=== PATIENT | male | born 1940 | race Caucasian/White ===

== ENCOUNTER 2016-04-22 18:42 | Observation (INO) | payer MEDICARE, SELFPAY ==
[2016-04-22 19:21] LABS: AUTOMATED EOSINOPHIL 1.1 % (0-5); AUTOMATED LYMPH 21.9 % (17-44); AUTOMATED MONOCYTE 6.8 % (3-10); AUTOMATED NEUTROPHIL 69.2 % (45-76); MPV 8.3 fL (7.4-10.4)
[2016-04-22 19:31] LABS: BLOOD UREA NITROGEN 15 MG/DL (9-20); CALCIUM 9.5 MG/DL (8.4-10.2); CALCULATED OSMOLALITY 263 MOs/Kg (270-290); CHLORIDE 98 mEq/L (98-107); GLUCOSE 91 MG/DL (70-99); SODIUM LEVEL 136 mEq/L (137-146)
[2016-04-22 19:40] LABS: PARTIAL THROMB. TIME 39.7 SEC (22-35); PT-INR 1.4
--- NOTE | 2016-04-22 23:12 | EDPRACDOC ---
<Bharat Bosch - Last Filed: 04/23/16 02:49> - General Information Mode of Arrival: Car - History of Present Illness Onset: 1500 HPI: C/o sub sternal chest pain starting at 3pm while sitting. pt got very shaky prior to chest pain, then passed out and woke up with his dog licking him. Denies fever, N/V/D, cough, sore throat, changes in BM. Also c/o intermittent hematuria. Stress test 12/2015 NEG for ischemia, EF 52%. Pt has hx COPD, HDL, of AFIB on diltiazem, amio, xarelto. No recent surgeries. Chest Pain Location: Reports: Substernal Pain Radiation: Reports: None Symptoms Occur: Reports: Suddenly, At Rest Cardiac Risk Factors: Reports: Smoker, Hyperlipidemia, Hypertension. Denies: Family History Cardiac History of: Reports: Stress Test (12/2015 NEG for ischemia, EF 52%) PE Risk Factors: Denies: Recent Trauma/Surgery, Estrogen Use, Control Pills, Immobilization Pain Came On: Reports: Suddenly Pain Status: Resolved Pain Description: Reports: Sharp Pain Severity: Moderate Pain Worsens With: Reports: Nothing Pain Improves With: Reports: Nothing Associated Signs and Symptoms: Reports: SOB <ElroyMarkoson - Last Filed: 04/23/16 04:16> - General Information Chief Complaint: Chest Pain Stated Complaint: SHAKING PASSSED OUT HEART ACTING UP Home Medications: Home Medications Amiodarone [Cordarone, Pacerone] 200 mg PO DAILY #40 tablet 12/31/15 Aspirin 325 mg PO DAILYWM #30 tablet 12/31/15 Oxycodone Immediate Release [Oxycodone Immediate Release (OxyIR)] 5 mg PO Q4H PRN #30 tablet 12/31/15 Cyclobenzaprine HCl [Flexeril] 10 mg PO TID 01/05/16 Naproxen [Naprosyn] 500 mg PO TID 01/05/16 Diltiazem HCl [Cardizem Cd] 180 mg PO DAILY #30 capsule.cr 01/06/16 Metoprolol Tartrate [Lopressor] 12.5 mg PO BID #60 tablet 01/06/16 Nicotine [Nicotine Patch] 21 mg TD DAILY #30 patch.dysq 01/06/16 Thiamine [Thiamine, Vitamin B-1] 100 mg PO DAILY@1200 #100 tablet 01/06/16 Allergies/Adverse Reactions: Allergies Allergy/AdvReac Type Severity Reaction Status Date / Time No Known Allergies Allergy Verified 04/22/16 18:58 ED Past Medical History - History Reviewed Yes Nurses notes reviewed and agree except as marked - Patient Medical History Neurological History: Denies: Cerebrovascular Accident, Dementia Cardiac History: Reports: Hypertension (Patient states he was previously treated ), Hypercholesterolemia (Patient states he was previously treated). Denies: Atrial Fibrillation, Congestive Heart Failure, Heart Attack, Cardiac Catheterization, CABG, Stress Test, Syncope Respiratory History: Reports: COPD. Denies: Asthma, Emphysema GI/ History: Reports: Kidney Stones. Denies: Gastroesophageal Reflux Psychological History: Reports: Anxiety. Denies: Depression, Substance Use Disorder Systemic History: Denies: Cancer, Anemia, Diabetes Surgical History: Reports: Other (PIN in the right tibia from fracture years ago ). Denies: CABG, Cardiac Catheterization - Family Medical History Reports: Hypertension, Diabetes (mom, sister, son), Cancer (sister breast, mom) . Denies: Stroke, Cardiac Disorders - Social Medical History Smoking Status: Heavy tobacco smoker (5 or more cigarettes/day or daily pipe/ cigar) Social History: Denies: Cocaine Use, Substance Use Disorder <Markos Abbasi - Last Filed: 04/23/16 04:16> EDM Review of Systems - Review of Systems ROS Negative Except as Marked: Yes All systems reviewed and were negative except as marked Respiratory: Shortness of Breath Cardiovascular: Chest Pain Genitourinary: Hematuria <Markos Abbasi - Last Filed: 04/23/16 04:16> - Physical Exam Last recorded Vital Signs: Last Vital Signs Temp 98 F 04/22/16 18:55 Pulse 72 04/22/16 23:14 Resp 20 04/22/16 18:55 BP 166/115 H 04/22/16 18:55 Pulse Ox 95 04/22/16 18:55 Oxygen Pulse Oxygen Saturation 95 O2 Device Oxygen Flow Rate Fraction of Inspired Oxygen ( FIO2) <Bharat Bosch - Last Filed: 04/23/16 02:49> - Physical Exam Constitutional: No apparent distress, Alert Oriented to: Time, Person, Place Last recorded Vital Signs: Last Vital Signs Temp 98 F 04/22/16 18:55 Pulse 66 04/22/16 18:55 Resp 20 04/22/16 18:55 BP 166/115 H 04/22/16 18:55 Pulse Ox 95 04/22/16 18:55 Oxygen Pulse Oxygen Saturation 95 O2 Device Oxygen Flow Rate Fraction of Inspired Oxygen ( FIO2) - HEENT Head: Normal Eye Exam: negative: Conjunctival Injection, Scleral Icterus Oropharynx: negative: Drooling TMJ: Normal Nose: No Symptoms Reported Neck: Normal - Respiratory/Cardiovascular Respiratory: Normal - CTA Cardiovascular: Normal - GI Tenderness: Non tender - Musculoskeletal Back: Normal Extremities: Normal - Integumentary Skin: Normal - Neurologic Mood Description: Normal Thought: Coherent Perception: Normal <Mrakos Abbasi - Last Filed: 04/23/16 04:16> ED Chest Pain Exam - Respiratory/Cardiovascular Respiratory: Normal - CTA Cardiovascular/Chest: Normal Radial Pulse: Normal Pedal Pulse: Normal Edema: negative: 1+, 2+, 3+, 4+, 5, 6 Chest Palpation: Normal <Markos Abbasi - Last Filed: 04/23/16 04:16> - Differential Diagnosis Other (SYNCOPE) - Action ASA given in the ED: Yes - Results 04/22/16 19:00 04/22/16 19:00 WBC 11.2 xk/uL (3.8-10.8) H 04/22/16 19:00 RBC 4.55 xM/uL (4.70-6.10) L 04/22/16 19:00 Hgb 15.1 g/dL (14.0-18.0) 04/22/16 19:00 Hct 44.8 % (42-52) 04/22/16 19:00 MCV 98 fL (80-94) H 04/22/16 19:00 MCH 33.2 pg (27-32) H 04/22/16 19:00 MCHC 33.7 g/dl (33-36) 04/22/16 19:00 RDW 13.3 % (11.5-14.5) 04/22/16 19:00 Plt Count 240 xk/uL (130-400) 04/22/16 19:00 MPV 8.3 fL (7.4-10.4) 04/22/16 19:00 Neut % (Auto) 69.2 % (45-76) 04/22/16 19:00 Lymph % (Auto) 21.9 % (17-44) 04/22/16 19:00 [place] % (Auto) 6.8 % (3-10) 04/22/16 19:00 Eos % (Auto) 1.1 % (0-5) 04/22/16 19:00 Baso % (Auto) 1.0 % (0-2) 04/22/16 19:00 Absolute Neuts (auto) 7.73 xk/uL (1.7-8.2) 04/22/16 19:00 Absolute Lymphs (auto) 2.35 xk/uL (0.65-4.75) 04/22/16 19:00 PT 14.3 SEC (9.2-11.2) H 04/22/16 19:00 INR 1.4 04/22/16 19:00 APTT 39.7 SEC (22-35) H 04/22/16 19:00 Sodium 136 mEq/L (137-146) L 04/22/16 19:00 Potassium 4.2 mEq/L (3.5-5.1) 04/22/16 19:00 Chloride 98 mEq/L (98-107) 04/22/16 19:00 Carbon Dioxide 24 mMOL/L (22-33) 04/22/16 19:00 Anion Gap 18 mEq/L (8-16) H 04/22/16 19:00 BUN 15 MG/DL (9-20) 04/22/16 19:00 Creatinine 1.10 MG/DL (0.66-1.25) 04/22/16 19:00 Estimated GFR (MDRD) > 60 mL/min (>=60) 04/22/16 19:00 Glucose 91 MG/DL (70-99) 04/22/16 19:00 Calculated Osmolality 263 MOs/Kg (270-290) L 04/22/16 19:00 Calcium 9.5 MG/DL (8.4-10.2) 04/22/16 19:00 Total Bilirubin 0.8 MG/DL (0.2-1.3) 04/22/16 19:00 AST 35 IU/L (17-59) 04/22/16 19:00 ALT 32 IU/L (21-72) 04/22/16 19:00 Alkaline Phosphatase 96 IU/L (50-160) 04/22/16 19:00 Troponin I 0.03 ng/mL (<.04) 04/22/16 21:45 Jix-U-Jznpvxovmin Pept 162 pg/mL (0-900) 04/22/16 19:00 Total Protein 8.0 G/DL (6.3-8.2) 04/22/16 19:00 Albumin 4.4 G/DL (3.5-5.0) 04/22/16 19:00 Lab Results 04/22/16 04/22/16 04/22/16 21:45 19:00 19:00 WBC 11.2 H RBC 4.55 L Hgb 15.1 Hct 44.8 MCV 98 H MCH 33.2 H MCHC 33.7 RDW 13.3 Plt Count 240 MPV 8.3 Neut % (Auto) 69.2 Lymph % (Auto) 21.9 [place] % (Auto) 6.8 Eos % (Auto) 1.1 Baso % (Auto) 1.0 Absolute Neuts (auto) 7.73 Absolute Lymphs (auto) 2.35 PT 14.3 H INR 1.4 APTT 39.7 H Sodium Potassium Chloride Carbon Dioxide Anion Gap BUN Creatinine Estimated GFR (MDRD) Glucose Calculated Osmolality Calcium Total Bilirubin AST ALT Alkaline Phosphatase Troponin I 0.03 Wvq-X-Vnrewyzujmo Pept Total Protein Albumin 04/22/16 19:00 WBC RBC Hgb Hct MCV MCH MCHC RDW Plt Count MPV Neut % (Auto) Lymph % (Auto) [place] % (Auto) Eos % (Auto) Baso % (Auto) Absolute Neuts (auto) Absolute Lymphs (auto) PT INR APTT Sodium 136 L Potassium 4.2 Chloride 98 Carbon Dioxide 24 Anion Gap 18 H BUN 15 Creatinine 1.10 Estimated GFR (MDRD) > 60 Glucose 91 Calculated Osmolality 263 L Calcium 9.5 Total Bilirubin 0.8 AST 35 ALT 32 Alkaline Phosphatase 96 Troponin I 0.02 Yqd-T-Xrebtjmymgv Pept 162 Total Protein 8.0 Albumin 4.4 Laboratory Results - last 24 hr 04/22/16 04/22/16 04/22/16 19:00 19:00 19:00 WBC 11.2 H RBC 4.55 L Hgb 15.1 Hct 44.8 MCV 98 H MCH 33.2 H MCHC 33.7 RDW 13.3 Plt Count 240 MPV 8.3 Neut % (Auto) 69.2 Lymph % (Auto) 21.9 [place] % (Auto) 6.8 Eos % (Auto) 1.1 Baso % (Auto) 1.0 Absolute Neuts (auto) 7.73 Absolute Lymphs (auto) 2.35 PT 14.3 H INR 1.4 APTT 39.7 H Sodium 136 L Potassium 4.2 Chloride 98 Carbon Dioxide 24 Anion Gap 18 H BUN 15 Creatinine 1.10 Estimated GFR (MDRD) > 60 Glucose 91 Calculated Osmolality 263 L Calcium 9.5 Total Bilirubin 0.8 AST 35 ALT 32 Alkaline Phosphatase 96 Troponin I 0.02 Hkr-U-Tlynefhakzp Pept 162 Total Protein 8.0 Albumin 4.4 04/22/16 21:45 WBC RBC Hgb Hct MCV MCH MCHC RDW Plt Count MPV Neut % (Auto) Lymph % (Auto) [place] % (Auto) Eos % (Auto) Baso % (Auto) Absolute Neuts (auto) Absolute Lymphs (auto) PT INR APTT Sodium Potassium Chloride Carbon Dioxide Anion Gap BUN Creatinine Estimated GFR (MDRD) Glucose Calculated Osmolality Calcium Total Bilirubin AST ALT Alkaline Phosphatase Troponin I 0.03 Ivi-C-Fzetwlgfqai Pept Total Protein Albumin Laboratory Results 04/22/16 19:00 04/22/16 19:00 <Bharat Bosch - Last Filed: 04/23/16 02:49> - Results 04/22/16 19:00 04/22/16 19:00 WBC 11.2 xk/uL (3.8-10.8) H 04/22/16 19:00 RBC 4.55 xM/uL (4.70-6.10) L 04/22/16 19:00 Hgb 15.1 g/dL (14.0-18.0) 04/22/16 19:00 Hct 44.8 % (42-52) 04/22/16 19:00 MCV 98 fL (80-94) H 04/22/16 19:00 MCH 33.2 pg (27-32) H 04/22/16 19:00 MCHC 33.7 g/dl (33-36) 04/22/16 19:00 RDW 13.3 % (11.5-14.5) 04/22/16 19:00 Plt Count 240 xk/uL (130-400) 04/22/16 19:00 MPV 8.3 fL (7.4-10.4) 04/22/16 19:00 Neut % (Auto) 69.2 % (45-76) 04/22/16 19:00 Lymph % (Auto) 21.9 % (17-44) 04/22/16 19:00 [place] % (Auto) 6.8 % (3-10) 04/22/16 19:00 Eos % (Auto) 1.1 % (0-5) 04/22/16 19:00 Baso % (Auto) 1.0 % (0-2) 04/22/16 19:00 Absolute Neuts (auto) 7.73 xk/uL (1.7-8.2) 04/22/16 19:00 Absolute Lymphs (auto) 2.35 xk/uL (0.65-4.75) 04/22/16 19:00 PT 14.3 SEC (9.2-11.2) H 04/22/16 19:00 INR 1.4 04/22/16 19:00 APTT 39.7 SEC (22-35) H 04/22/16 19:00 Sodium 136 mEq/L (137-146) L 04/22/16 19:00 Potassium 4.2 mEq/L (3.5-5.1) 04/22/16 19:00 Chloride 98 mEq/L (98-107) 04/22/16 19:00 Carbon Dioxide 24 mMOL/L (22-33) 04/22/16 19:00 Anion Gap 18 mEq/L (8-16) H 04/22/16 19:00 BUN 15 MG/DL (9-20) 04/22/16 19:00 Creatinine 1.10 MG/DL (0.66-1.25) 04/22/16 19:00 Estimated GFR (MDRD) > 60 mL/min (>=60) 04/22/16 19:00 Glucose 91 MG/DL (70-99) 04/22/16 19:00 Calculated Osmolality 263 MOs/Kg (270-290) L 04/22/16 19:00 Calcium 9.5 MG/DL (8.4-10.2) 04/22/16 19:00 Total Bilirubin 0.8 MG/DL (0.2-1.3) 01/13/17 19:00 AST 35 IU/L (17-59) 04/22/16 19:00 ALT 32 IU/L (21-72) 04/22/16 19:00 Alkaline Phosphatase 96 IU/L (50-160) 04/22/16 19:00 Troponin I 0.03 ng/mL (<.04) 04/22/16 21:45 Mro-R-Abvdxsojfre Pept 162 pg/mL (0-900) 04/22/16 19:00 Total Protein 8.0 G/DL (6.3-8.2) 04/22/16 19:00 Albumin 4.4 G/DL (3.5-5.0) 04/22/16 19:00 Lab Results 04/22/16 04/22/16 04/22/16 21:45 19:00 19:00 WBC 11.2 H RBC 4.55 L Hgb 15.1 Hct 44.8 MCV 98 H MCH 33.2 H MCHC 33.7 RDW 13.3 Plt Count 240 MPV 8.3 Neut % (Auto) 69.2 Lymph % (Auto) 21.9 [place] % (Auto) 6.8 Eos % (Auto) 1.1 Baso % (Auto) 1.0 Absolute Neuts (auto) 7.73 Absolute Lymphs (auto) 2.35 PT 14.3 H INR 1.4 APTT 39.7 H Sodium Potassium Chloride Carbon Dioxide Anion Gap BUN Creatinine Estimated GFR (MDRD) Glucose Calculated Osmolality Calcium Total Bilirubin AST ALT Alkaline Phosphatase Troponin I 0.03 Emx-A-Ajykyxxgmfj Pept Total Protein Albumin 04/22/16 19:00 WBC RBC Hgb Hct MCV MCH MCHC RDW Plt Count MPV Neut % (Auto) Lymph % (Auto) [place] % (Auto) Eos % (Auto) Baso % (Auto) Absolute Neuts (auto) Absolute Lymphs (auto) PT INR APTT Sodium 136 L Potassium 4.2 Chloride 98 Carbon Dioxide 24 Anion Gap 18 H BUN 15 Creatinine 1.10 Estimated GFR (MDRD) > 60 Glucose 91 Calculated Osmolality 263 L Calcium 9.5 Total Bilirubin 0.8 AST 35 ALT 32 Alkaline Phosphatase 96 Troponin I 0.02 Xyk-T-Lssjaenqoxw Pept 162 Total Protein 8.0 Albumin 4.4 Laboratory Results - last 24 hr 04/22/16 04/22/16 04/22/16 19:00 19:00 19:00 WBC 11.2 H RBC 4.55 L Hgb 15.1 Hct 44.8 MCV 98 H MCH 33.2 H MCHC 33.7 RDW 13.3 Plt Count 240 MPV 8.3 Neut % (Auto) 69.2 Lymph % (Auto) 21.9 [place] % (Auto) 6.8 Eos % (Auto) 1.1 Baso % (Auto) 1.0 Absolute Neuts (auto) 7.73 Absolute Lymphs (auto) 2.35 PT 14.3 H INR 1.4 APTT 39.7 H Sodium 136 L Potassium 4.2 Chloride 98 Carbon Dioxide 24 Anion Gap 18 H BUN 15 Creatinine 1.10 Estimated GFR (MDRD) > 60 Glucose 91 Calculated Osmolality 263 L Calcium 9.5 Total Bilirubin 0.8 AST 35 ALT 32 Alkaline Phosphatase 96 Troponin I 0.02 Pih-E-Gvgvlgoyucw Pept 162 Total Protein 8.0 Albumin 4.4 04/22/16 21:45 WBC RBC Hgb Hct MCV MCH MCHC RDW Plt Count MPV Neut % (Auto) Lymph % (Auto) [place] % (Auto) Eos % (Auto) Baso % (Auto) Absolute Neuts (auto) Absolute Lymphs (auto) PT INR APTT Sodium Potassium Chloride Carbon Dioxide Anion Gap BUN Creatinine Estimated GFR (MDRD) Glucose Calculated Osmolality Calcium Total Bilirubin AST ALT Alkaline Phosphatase Troponin I 0.03 Sfw-I-Cnbexilazzo Pept Total Protein Albumin Laboratory Results 04/22/16 19:00 04/22/16 19:00 - EKG EKG #1 EKG Time: 18:52 -: Yes EKG interpreted by me Rate: bpm: 64 [place]: RAD ST: [facility] - Diagnostic Imaging Chest Image interpreted by: Radiologist EXAM: PORTABLE CHEST 1 VIEW COMPARISON: Chest radiograph performed on 01/05/2016 FINDINGS: The lungs are well-aerated. Pulmonary vascularity is at the upper limits of normal. There is no evidence of focal opacification, pleural effusion or pneumothorax. The cardiomediastinal silhouette is within normal limits. No acute osseous abnormalities are seen. IMPRESSION: No acute cardiopulmonary process seen. Electronically Signed By: Joseluis Frost M.D. On: 04/22/2016 23:32 <Markos Abbasi - Last Filed: 04/23/16 04:16> - Departure Yes I personally saw and evaluated the patient. Decision to Admit Time: 02:49 Decision to admit date: 04/23/16 Decision to admit: from ED - Physician Consulted Hospitalist Time Called: 23:49 Provider Called: Judith Wolff Time Development Coach Returned Call: 23:49 <Bharat Bosch - Last Filed: 04/23/16 02:49> - Departure Disposition: Admit IP To This Hospital Education/Counseling Given To: Patient Education/Counseling Given Regarding: Diagnosis, Treatment, Prognosis, Follow Up <Markos Abbasi - Last Filed: 04/23/16 04:16> - Departure Condition: Stable Final Diagnosis: Chest pain Qualifiers: Chest pain type: unspecified Qualified Code(s): R07.9 - Chest pain, unspecified Syncope Qualifiers: Syncope type: vasovagal syncope Qualified Code(s): R55 - Syncope and collapse
--- NOTE | 2016-04-22 23:34 | DIRPT ---
CLINICAL DATA: Acute onset of syncope. Shortness of breath and dizziness. Cough. Initial encounter. EXAM: PORTABLE CHEST 1 VIEW COMPARISON: Chest radiograph performed on 01/05/2016 FINDINGS: The lungs are well-aerated. Pulmonary vascularity is at the upper limits of normal. There is no evidence of focal opacification, pleural effusion or pneumothorax. The cardiomediastinal silhouette is within normal limits. No acute osseous abnormalities are seen. IMPRESSION: No acute cardiopulmonary process seen. Electronically Signed By: Joseluis Frost M.D. On: 04/22/2016 23:32
[2016-04-23 01:04] LABS: ETOH-MGDL < 10 mg/dL
[2016-04-23] MEDS ORDERED: Pharmacy Review for Metformin - IV Contrast Given SCH (02:00)
--- NOTE | 2016-04-23 02:56 | DIRPT ---
CLINICAL DATA: Subacute onset of shortness of breath. Syncope and generalized weakness. Elevated D-dimer. Initial encounter. EXAM: CT ANGIOGRAPHY CHEST WITH CONTRAST TECHNIQUE: Multidetector CT imaging of the chest was performed using the standard protocol during bolus administration of intravenous contrast. Multiplanar CT image reconstructions and MIPs were obtained to evaluate the vascular anatomy. CONTRAST: 100 mL of Isovue 370 IV contrast COMPARISON: Chest radiograph performed 04/22/2016 FINDINGS: There is no evidence of pulmonary embolus. Minimal scarring is noted at the right lung base. The lungs are otherwise clear. There is no evidence of significant focal consolidation, pleural effusion or pneumothorax. No masses are identified; no abnormal focal contrast enhancement is seen. Scattered coronary artery calcifications are seen. The mediastinum is otherwise unremarkable. No mediastinal lymphadenopathy is seen. No pericardial effusion is identified. The great vessels are grossly unremarkable, aside from scattered mild calcification. No axillary lymphadenopathy is seen. The visualized portions of the thyroid gland are unremarkable in appearance. The visualized portions of the liver and spleen are unremarkable. The visualized portions of the pancreas, gallbladder, stomach and adrenal glands are within normal limits. Slight nodularity about the left adrenal gland is thought to be artifactual in nature. No acute osseous abnormalities are seen. Review of the MIP images confirms the above findings. IMPRESSION: 1. No evidence of pulmonary embolus. 2. Minimal scarring at the right lung base. Lungs otherwise clear. 3. Scattered coronary artery calcifications seen. Electronically Signed By: Joseluis Frost M.D. On: 04/23/2016 02:54
--- NOTE | 2016-04-23 03:43 | HISTPHYS ---
- Chief Complaint STS CHEST PAIN STARTED WHILE SITTING NON RADIATION AND FEELS SHAKY ALL OVER and passed out - History of Present Illness C/o sub sternal chest pain starting at 3pm while sitting. pt got very shaky prior to chest pain, then passed out and woke up with his dog licking him. Denies fever, N/V/D, cough, sore throat, changes in BM. Also c/o intermittent hematuria. Stress test 12/2015 NEG for ischemia, EF 52%. Pt has hx COPD, HDL, of AFIB on diltiazem, amio, xarelto. No recent surgeries. Chest Pain Location: Reports: Substernal Pain Radiation: Reports: None Symptoms Occur: Reports: Suddenly, At Rest Cardiac Risk Factors: Reports: Smoker, Hyperlipidemia, Hypertension. Denies: Family History Cardiac History of: Reports: Stress Test (12/2015 NEG for ischemia, EF 52%) PE Risk Factors: Denies: Recent Trauma/Surgery, Estrogen Use, Control Pills, Immobilization Pain Came On: Reports: Suddenly Pain Status: Resolved Pain Description: Reports: Sharp Pain Severity: Moderate Pain Worsens With: Reports: Nothing Pain Improves With: Reports: Nothing Associated Signs and Symptoms: Reports: SOB Evaluation in the ER was unremarkable until I ordered orthostatics and the patient was found to have orthostatic hypotension. He has a long history of alcohol use says he last drank 3 beers yesterday. He continues to enjoy smoking and states that he does not wish to quit. Patient will be admitted into the hospital for treatment of orthostatic hypotension causing syncope - Medical History Cardiac History: Reports: Hypertension (Patient states he was previously treated ), Hypercholesterolemia (Patient states he was previously treated), Syncope. Denies: Atrial Fibrillation, Congestive Heart Failure, Heart Attack, Cardiac Catheterization, CABG, Stress Test Respiratory History: Reports: COPD. Denies: Asthma, Emphysema GI/ History: Reports: Kidney Stones. Denies: Gastroesophageal Reflux Systemic History: Denies: Cancer, Anemia, Diabetes Neurological History: Denies: Cerebrovascular Accident, Dementia Psychological History: Reports: Anxiety. Denies: Depression, Substance Use Disorder - Surgical History Reports: Other (PIN in the right tibia from fracture years ago). Denies: CABG, Cardiac Catheterization - Medictions/Allergies Allergies No Known Allergies Allergy (Verified 04/22/16 18:58) Current Medication List: Reviewed Home Medications Amiodarone [Cordarone, Pacerone] 200 mg PO DAILY #40 tablet 12/31/15 Aspirin 325 mg PO DAILYWM #30 tablet 12/31/15 Oxycodone Immediate Release [Oxycodone Immediate Release (OxyIR)] 5 mg PO Q4H PRN #30 tablet 12/31/15 Cyclobenzaprine HCl [Flexeril] 10 mg PO TID 01/05/16 Naproxen [Naprosyn] 500 mg PO TID 01/05/16 Diltiazem HCl [Cardizem Cd] 180 mg PO DAILY #30 capsule.cr 01/06/16 Metoprolol Tartrate [Lopressor] 12.5 mg PO BID #60 tablet 01/06/16 Nicotine [Nicotine Patch] 21 mg TD DAILY #30 patch.dysq 01/06/16 Thiamine [Thiamine, Vitamin B-1] 100 mg PO DAILY@1200 #100 tablet 01/06/16 - Family History Reports: Hypertension, Diabetes (mom, sister, son), Cancer (sister breast, mom) . Denies: Stroke, Cardiac Disorders - Social History Travel Outside of [place] in the Last 3 Months?: No Smoking Status: Heavy tobacco smoker (5 or more cigarettes/day or daily pipe/ cigar) Social History: Denies: Alcohol Use, Cocaine Use, Substance Use Disorder - Review of Systems Constitutional: Weakness Eyes: No Symptoms Reported (No blurry vision, visual changes, eye pain, or eye redness.) Ears: No Symptoms Reported (No ear pain or discharge) Nose: No Symptoms Reported (No nasal discharge/congestion or bleeding) Mouth: No Symptoms Reported (No oropharyngeal lesions or erythema) Throat/Neck: No Symptoms Reported (No throat pain or swelling.No oropharyngeal lesions or erythema.) Respiratory: No Symptoms Reported (No cough, wheezing, or shortness of breath.) Cardiovascular: Chest Pain, Syncope. negative: Orthopnea, Palpitations Gastrointestinal: No Symptoms Reported (No abdominal pain, nausea, vomiting, diarrhea, constipation, or bloody stool.) Genitourinary: No Symptoms Reported (No dysuria or hematuria.) Neurological: No Symptoms Reported (No headache, dizziness, seizures, or focal weakness.) Musculoskeletal:: No Symptoms Reported Integumentary: No Symptoms Reported (no rashes or lesions) Allergic/Immunologic: No Symptoms Reported (no rashes or lesions) Hematologic: No Symptoms Reported (No chronic anemia, bleeding, or easy bruising.), Other (Lymphatics- no lymph node swelling or pain.) Endocrine: No Symptoms Reported (No thyroid issues, polyuria, or polydipsia.) Psychiatric: No Symptoms Reported (Fully oriented, with normal and appropriate affect.) - Physical Exam Vital Signs: Initial Vitals Temperature 98 F 04/22/16 18:55 Pulse Rate 66 04/22/16 18:55 Respiratory Rate 20 04/22/16 18:55 Blood Pressure 166/115 H 04/22/16 18:55 Pulse Oxygen Saturation 95 04/22/16 18:55 Constitutional: Alert (Awake, Fully oriented. Normal and appropriate affect.Well appearing. Well nourished.), No apparent distress Oriented to: Time, Person, Place Exam: chronically ill appearing - HEENT Head: Normal (normocephalic, atraumatic.), Other (No cervical lymphadenopathy. No supraclavicular lymphadenopathy. Neck: No palpable mass, supple , trachea midline.) Eye: Conjunctival Injection, Other (Blood shot) Oropharynx: Normal (Pharynx: Moist without exudate,Gums-no swelling, No oropharyngeal lesions or erythema, Mucous membranes are dry.) Tympanic Membrane: Normal (no discharge) ENT EAC: Normal (No oropharyngeal lesions or erythema. Mucous membranes are dry. ) TMJ: Normal Nose: No Symptoms Reported (septum midline, Nares patent, without discharge or bleeding.) Respiratory: Diminished, Wheezes. negative: Accessory Muscle Use, Rhonchi Cardiovascular: Normal (RRR , Normal S1, S2. No murmurs, rubs, or gallops. PMI non-displaced. Carotids: no carotid bruits. No bradycardia or tachycardia. DP pulses 2+ bilaterally.) - GI Auscultation: Normal (normal active sounds) Palpation: Normal (Soft,non distended,nontender. No hepatosplenomegaly.) Tenderness: Non tender (No rebound or guarding) Lutz's Sign: Negative - Musculoskeletal Back: Normal (Non-Tender) Extremities: Normal (Normal tone, DP pulses 2+ bilaterally, No cyanosis or edema bilaterally, FROM bilaterally.) - Integumentary Skin: Normal (Clean, dry, and intact. No rashes. No lesions.) Lymphatics: Normal (No cervical lymphadenopathy. No supraclavicular lymphadenopathy.) - Neurologic Memory Impaired: Normal Motor Function: Normal (Motor 5/5 throughout.Normal tone, Pulses 2+ No cyanosis or edema, FROM) Cranial Nerve: Normal (CN II-XII intact sensation, strength 5/5) Cerebellar: Tremor Mood Description: Anxious Perception: Normal (Normal and appropriate affect.) - Focused CV Perfusion Exam Vital Signs: Last Vital Signs Temp 98 F 04/22/16 18:55 Pulse 57 L 04/23/16 02:39 Resp 18 04/23/16 02:39 BP 186/84 H 04/23/16 02:39 Pulse Ox 90 L 04/23/16 02:39 - Lab Results Laboratory Results - last 24 hr 04/22/16 04/22/16 04/22/16 19:00 19:00 19:00 WBC 11.2 H RBC 4.55 L Hgb 15.1 Hct 44.8 MCV 98 H MCH 33.2 H MCHC 33.7 RDW 13.3 Plt Count 240 MPV 8.3 Neut % (Auto) 69.2 Lymph % (Auto) 21.9 Wilcox % (Auto) 6.8 Eos % (Auto) 1.1 Baso % (Auto) 1.0 Absolute Neuts (auto) 7.73 Absolute Lymphs (auto) 2.35 PT 14.3 H INR 1.4 APTT 39.7 H D-Dimer Quant (PE/DVT) Sodium 136 L Potassium 4.2 Chloride 98 Carbon Dioxide 24 Anion Gap 18 H BUN 15 Creatinine 1.10 Estimated GFR (MDRD) > 60 Glucose 91 Calculated Osmolality 263 L Calcium 9.5 Total Bilirubin 0.8 AST 35 ALT 32 Alkaline Phosphatase 96 Troponin I 0.02 Ymx-X-Vyboicbmcfg Pept 162 Total Protein 8.0 Albumin 4.4 Lipase Plasma/Serum Ethyl Alc 04/22/16 04/22/16 04/22/16 19:00 19:00 19:00 WBC RBC Hgb Hct MCV MCH MCHC RDW Plt Count MPV Neut % (Auto) Lymph % (Auto) Wilcox % (Auto) Eos % (Auto) Baso % (Auto) Absolute Neuts (auto) Absolute Lymphs (auto) PT INR APTT D-Dimer Quant (PE/DVT) 655 H Sodium Potassium Chloride Carbon Dioxide Anion Gap BUN Creatinine Estimated GFR (MDRD) Glucose Calculated Osmolality Calcium Total Bilirubin AST ALT Alkaline Phosphatase Troponin I Zww-I-Kbutqmlelos Pept Total Protein Albumin Lipase 130 Plasma/Serum Ethyl Alc 04/22/16 04/23/16 21:45 01:15 WBC RBC Hgb Hct MCV MCH MCHC RDW Plt Count MPV Neut % (Auto) Lymph % (Auto) Wilcox % (Auto) Eos % (Auto) Baso % (Auto) Absolute Neuts (auto) Absolute Lymphs (auto) PT INR APTT D-Dimer Quant (PE/DVT) Sodium Potassium Chloride Carbon Dioxide Anion Gap BUN Creatinine Estimated GFR (MDRD) Glucose Calculated Osmolality Calcium Total Bilirubin AST ALT Alkaline Phosphatase Troponin I 0.03 0.02 Hmq-R-Wgmuxdrjunr Pept Total Protein Albumin Lipase Plasma/Serum Ethyl Alc - Diagnostic Findings EKG #1 EKG Time: 18:52 -: Yes EKG interpreted by me Rate: bpm: 64 [place]: RAD ST: Nonsp personally read by me EXAM: CT ANGIOGRAPHY CHEST WITH CONTRAST TECHNIQUE: Multidetector CT imaging of the chest was performed using the standard protocol during bolus administration of intravenous contrast. Multiplanar CT image reconstructions and MIPs were obtained to evaluate the vascular anatomy. CONTRAST: 100 mL of Isovue 370 IV contrast COMPARISON: Chest radiograph performed 04/22/2016 FINDINGS: There is no evidence of pulmonary embolus. Minimal scarring is noted at the right lung base. The lungs are otherwise clear. There is no evidence of significant focal consolidation, pleural effusion or pneumothorax. No masses are identified; no abnormal focal contrast enhancement is seen. Scattered coronary artery calcifications are seen. The mediastinum is otherwise unremarkable. No mediastinal lymphadenopathy is seen. No pericardial effusion is identified. The great vessels are grossly unremarkable, aside from scattered mild calcification. No axillary lymphadenopathy is seen. The visualized portions of the thyroid gland are unremarkable in appearance. The visualized portions of the liver and spleen are unremarkable. The visualized portions of the pancreas, gallbladder, stomach and adrenal glands are within normal limits. Slight nodularity about the left adrenal gland is thought to be artifactual in nature. No acute osseous abnormalities are seen. Review of the MIP images confirms the above findings. IMPRESSION: 1. No evidence of pulmonary embolus. 2. Minimal scarring at the right lung base. Lungs otherwise clear. 3. Scattered coronary artery calcifications seen. Electronically Signed By: Joseluis Frost M.D. On: 04/23/2016 02:54 PORTABLE CHEST 1 VIEW COMPARISON: Chest radiograph performed on 01/05/2016 FINDINGS: The lungs are well-aerated. Pulmonary vascularity is at the upper limits of normal. There is no evidence of focal opacification, pleural effusion or pneumothorax. The cardiomediastinal silhouette is within normal limits. No acute osseous abnormalities are seen. IMPRESSION: No acute cardiopulmonary process seen. Electronically Signed By: Joseluis Frost M.D. On: 04/22/2016 23:32 - Assessment (1) Syncope R55 - SYNCOPE AND COLLAPSE Acute Present on Admission: Yes Qualifiers: Syncope type: vasovagal syncope Qualified Code(s): R55 - Syncope and collapse Likely associated with orthostatic hypotension. Patient will be admitted into the hospital and treated with IV fluid resuscitation. (2) Orthostatic hypotension I95.1 - ORTHOSTATIC HYPOTENSION Acute Present on Admission: Yes Patient will receive 2 L fluid bolus and fluids at 1:25 a.m. per hour. Will recheck orthostatics after 2 L fluid bolus. (3) Chest pain R07.9 - CHEST PAIN, UNSPECIFIED Acute Present on Admission: Yes Qualifiers: Chest pain type: unspecified Qualified Code(s): R07.9 - Chest pain, unspecified Patient has had a stress test in December of 2015 I doubt this is cardiac in origin. May be vagal due to his orthostatic hypotension. Also may be related to heartburn from alcohol and tobacco use. (4) COPD (chronic obstructive pulmonary disease) J44.9 - CHRONIC OBSTRUCTIVE PULMONARY DISEASE, UNSPECIFIED Chronic Qualifiers: COPD type: unspecified COPD Qualified Code(s): J44.9 - Chronic obstructive pulmonary disease, unspecified Patient is an avid smoker has no intention to quit. Nebulizers are ordered. (5) Hyperlipidemia E78.5 - HYPERLIPIDEMIA, UNSPECIFIED Chronic Present on Admission: Yes Qualifiers: Hyperlipidemia type: unspecified Qualified Code(s): E78.5 - Hyperlipidemia , unspecified Recommend outpatient follow-up. (6) Hypertension I10 - ESSENTIAL (PRIMARY) HYPERTENSION Chronic Qualifiers: Hypertension type: essential hypertension Qualified Code(s): I10 - Essential (primary) hypertension Home medicines as ordered. Monitor closely (7) Tobacco abuse Z72.0 - TOBACCO USE Chronic Patient with acute smoking history of about 60 pack years. Told me he has no intention to quit. (8) Alcohol abuse F10.10 - ALCOHOL ABUSE, UNCOMPLICATED Acute Likely cause of his hypotension due to dehydration. Also probable cause of his chest pain likely due to heartburn. Will start proton pump inhibitor Case Care Discussed with: Patient, Family, Nursing Staff Total Time: 65 minutes Critical Care: No Couseling Time (>50% in counseling/coordination): No
[2016-04-23] MEDS ORDERED: NITROGLYCERINE 0.4 MG TAB SL PRN (03:49)
[2016-04-23] MEDS ORDERED: Pharmacy Order Set Alert SCH (04:00)
[2016-04-23] MEDS: NS 1,000 ML IV SCH ×2 (04:08→05:21)
[2016-04-23] MEDS ORDERED: PANTOPRAZOLE 40 MG TAB PO SCH (06:00)
[2016-04-23] MEDS ORDERED: NS 1,000 ML IV SCH (06:00)
[2016-04-23] MEDS ORDERED: PANTOPRAZOLE 40 MG TAB PO ONE (06:26)
[2016-04-23 07:40] VITALS: TEMP 97.4; BMI 29.9
[2016-04-23] MEDS ORDERED: ASPIRIN (CHEWABLE) 81 MG TAB PO SCH (08:00)
[2016-04-23] MEDS ORDERED: Vaccine Screening Complete SCH (09:00)
[2016-04-23] MEDS ORDERED: METOPROLOL TARTRATE 25 MG TAB PO SCH (09:00)
[2016-04-23 09:11] VITALS: BP 156/71
--- NOTE | 2016-04-23 10:00 | PCM.DCS92 ---
[id number] 4d Yes vasovagal syncope E R55 - Syncope and collapse Comment: Likely associated with orthostatic hypotension. Patient will be admitted into the hospital and treated with IV fluid resuscitation. (2) Orthostatic hypotension Acute I95.1 - ORTHOSTATIC HYPOTENSION Present on Admission: Yes Comment: Patient will receive 2 L fluid bolus and fluids at 1:25 a.m. per hour. Will recheck orthostatics after 2 L fluid bolus. (3) Alcohol abuse Acute F10.10 - ALCOHOL ABUSE, UNCOMPLICATED Present on Admission: Yes Comment: Likely cause of his hypotension due to dehydration. Also probable cause of his chest pain likely due to heartburn. Will start proton pump inhibitor (4) Paroxysmal atrial fibrillation Acute I48.0 - PAROXYSMAL ATRIAL FIBRILLATION Present on Admission: Yes (5) COPD (chronic obstructive pulmonary disease) Chronic J44.9 - CHRONIC OBSTRUCTIVE PULMONARY DISEASE, UNSPECIFIED Present on Admission: Yes unspecified COPD C E J44.9 - Chronic obstructive pulmonary disease, unspecified Comment: Patient is an avid smoker has no intention to quit. Nebulizers are ordered. (6) Tobacco abuse Chronic Z72.0 - TOBACCO USE Present on Admission: Yes Comment: Patient with acute smoking history of about 60 pack years. Told me he has no intention to quit. Discharge Disposition: Home Discharge Condition: Stable Cognitive Discharge Status: Unimpaired Fuctional Discharge Status: Independent Physician Follow up/Referrals: Wandy Miller MD [Primary Care Provider] - Hospital to call w/ appt. Home Medications / New Prescriptions: New Metoprolol Tartrate [Lopressor] 12.5 mg PO BID #30 tablet Pantoprazole Sodium [Protonix] 40 mg PO 0600 #30 tablet Continue Amiodarone [Cordarone, Pacerone] 200 mg PO DAILY #40 tablet Gabapentin 300 mg PO TID Metformin HCl [Metformin HCl ER] 1 tab PO DAILY Atorvastatin Calcium 1 tab PO DAILY Diltiazem HCl [Cartia Xt] 1 tab PO DAILY Naproxen 1 tab PO BID PRN PRN Reason: Pain Cyclobenzaprine HCl 1 tab PO DAILY Amlodipine Besylate 1 tab PO DAILY Discontinued Rosuvastatin Calcium [Crestor] 20 mg PO DAILY Metoprolol Tartrate 25 mg PO Discharge Home Medication List Amiodarone [Cordarone, Pacerone] 200 mg PO DAILY #40 tablet 12/31/15 [Rx Confirmed 04/23/16 Last Taken 04/22/16] Amlodipine Besylate 1 tab PO DAILY 04/23/16 [History Confirmed 04/23/16 Last Taken 04/22/16] Atorvastatin Calcium 1 tab PO DAILY 04/23/16 [History Confirmed 04/23/16 Last Taken 04/22/16] Cyclobenzaprine HCl 1 tab PO DAILY 04/23/16 [History Confirmed 04/23/16 Last Taken 04/22/16] Diltiazem HCl [Cartia Xt] 1 tab PO DAILY 04/23/16 [History Confirmed 04/23/16 Last Taken 04/22/16] Gabapentin 300 mg PO TID 04/23/16 [History Confirmed 04/23/16 Last Taken ] Metformin HCl [Metformin HCl ER] 1 tab PO DAILY 04/23/16 [History Confirmed Last Taken 04/22/16] Metoprolol Tartrate [Lopressor] 12.5 mg PO BID #30 tablet 04/23/16 [Rx Last Taken Unknown] Naproxen 1 tab PO BID PRN 04/23/16 [History Confirmed 04/23/16 Last Taken Unknown] Pantoprazole Sodium [Protonix] 40 mg PO 0600 #30 tablet 04/23/16 [Rx Last Taken Unknown] O2 Device: Room Air Additional Instructions: Follow up with your fitness leader regarding atypical chest pain. Return to ED for any new or worsening symptoms. Diet at Discharge: Cardiac, Heart Healthy Activity: As Tolerated Call Office For: Worsening Symptoms Discontinue use of:: Alcohol, All Illegal Substances, All Types of Tobacco - DC Summary Notes Hospital Course Note:: Discharge summary on patient named MATT BULLARD admitted to [facility] on 04/23/16 by Judith Wolff MD. Date of discharge is [04/23/16]. Mr. Matt Bullard is a 75 year old man who presented to the ED after a syncopal episode. He was noted to be orthostatic, placed in observation on telemetry for less than 24 hours, but had no evidence of arrhythmias. He was hydrated with 2400 mL of IV fluids, after which his BP was improved. He indicated that he had no interest in smoking cessation or cessation of alcohol consumption. He was symptomatically improved and requested discharge. He was discharged home and advised to continue any previous medications and to follow up with his primary care provider in 1-2 weeks. Total Time: 35 MIN Code: 17196 (>30min.) - Physical Exam Vital Signs: Last Vital Signs Temp 97.4 F L 04/23/16 07:30 Pulse 59 L 04/23/16 08:40 Resp 15 04/23/16 07:30 BP 156/71 04/23/16 08:40 Pulse Ox 97 04/23/16 07:30 Oxygen Pulse Oxygen Saturation 97 O2 Device Room Air Oxygen Flow Rate Fraction of Inspired Oxygen ( FIO2) Constitutional: No apparent distress, Alert Oriented to: Time, Person, Place - HEENT Head: Normal Eye: negative: Conjunctival Injection, Scleral Icterus Oropharynx: negative: Drooling TMJ: Normal Nose: No Symptoms Reported - Respiratory/Cardiovascular Respiratory: Normal - CTA Cardiovascular: Normal - GI Tenderness: Non tender - Musculoskeletal Back: Normal Extremities: Normal - Integumentary Skin: Normal - Neurologic Mood Description: Normal Thought: Coherent Perception: Normal
[2016-04-23 13:23] VITALS: PULSE 58
[2016-04-23] MEDS ORDERED: ENOXAPARIN 40 MG/0.4 ML PFS SQ SCH (14:00)
--- NOTE | 2016-04-24 08:43 | CAPUEKG ---
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
== END 2016-04-23 13:41 | disposition home or self-care (01) ==
LOC: ED 18:42 → EDINP 04-23 03:49 → PCU 04-23 06:23
PROVIDERS: ADMIT Hospitalist; ATTEND Family Medicine
DX: R55 Syncope and collapse (principal); I95.1 Orthostatic hypotension; F10.10 Alcohol abuse, uncomplicated; I48.0 Paroxysmal atrial fibrillation; J44.9 Chronic obstructive pulmonary disease, unspecified; E78.5 Hyperlipidemia, unspecified; I10 Essential (primary) hypertension; F17.210 Nicotine dependence, cigarettes, uncomplicated; Z79.82 Long term (current) use of aspirin; Z79.899 Other long term (current) drug therapy; R07.9 Chest pain, unspecified; R06.02 Shortness of breath
CPT/HCPCS: 36415; 71010; 71275; 80053; 80307; 83690; 83880; 84484; 85025; 85379; 85610; 85730; 93005; 99284; A9270; A9698; G0378; J1650; J3490